=== PATIENT | female | born 1955 | race Hispanic/Latino ===

== ENCOUNTER → 2019-08-27 | Outpatient (CLI) | payer OTHER | END | disposition home or self-care (01) | LOC: RAH 14:21 | PROVIDERS: ATTEND Internal Medicine Critical Care Medicine | DX: Z13.6 Encounter for screening for cardiovascular disorders (principal) ==

== ENCOUNTER → 2021-06-24 | Outpatient (CLI) | payer MEDICARE, BC | END | disposition home or self-care (01) | LOC: RAH 13:03 | PROVIDERS: ATTEND Physician Assistant | DX: S83.241A Other tear of medial meniscus, current injury, right knee, initial encounter (principal); S83.281A Other tear of lateral meniscus, current injury, right knee, initial encounter; S83.242A Other tear of medial meniscus, current injury, left knee, initial encounter; M23.300 Other meniscus derangements, unspecified lateral meniscus, right knee; M23.352 Other meniscus derangements, posterior horn of lateral meniscus, left knee; M25.462 Effusion, left knee; M05.79 Rheumatoid arthritis with rheumatoid factor of multiple sites without organ or systems involvement; M54.16 Radiculopathy, lumbar region; M54.51 Vertebrogenic low back pain; M54.12 Radiculopathy, cervical region; X58.XXXA Exposure to other specified factors, initial encounter; Y93.89 Activity, other specified; Y92.89 Other specified places as the place of occurrence of the external cause; Y99.8 Other external cause status | CPT/HCPCS: 73721 ==

== ENCOUNTER → 2021-06-25 | Outpatient (CLI) | payer MEDICARE | END | disposition home or self-care (01) | LOC: RAH 07:55 | PROVIDERS: ATTEND Physician Assistant | DX: M48.061 Spinal stenosis, lumbar region without neurogenic claudication (principal); M54.12 Radiculopathy, cervical region; M54.51 Vertebrogenic low back pain; M51.17 Intervertebral disc disorders with radiculopathy, lumbosacral region | CPT/HCPCS: 72141; 72146; 72148 ==

== ENCOUNTER → 2021-08-23 | Outpatient (CLI) | payer MEDICARE | END | disposition home or self-care (01) | LOC: RAH 13:51 | PROVIDERS: ATTEND Neurological Surgery | DX: I70.213 Atherosclerosis of native arteries of extremities with intermittent claudication, bilateral legs (principal) | CPT/HCPCS: 93925 ==

== ENCOUNTER → 2022-11-22 | Outpatient (CLI) | payer MEDICARE | END | disposition home or self-care (01) | LOC: RAH 12:53 | PROVIDERS: ATTEND Physician Assistant | DX: M85.88 Other specified disorders of bone density and structure, other site (principal); E55.9 Vitamin D deficiency, unspecified | CPT/HCPCS: 77080 ==